=== PATIENT | female | born 1985 | race Caucasian/White ===

== ENCOUNTER 2024-04-04 14:04 | Emergency (ER) | payer OTHER, SELFPAY ==
[2024-04-04 14:15] VITALS: BP 113/71; PULSE 73; TEMP 36.4; O2SAT 95; BMI 28.8
--- OUTSIDE RECORDS SUMMARY | 2024-04-04 14:30 | XMS_ITS | CCD ---
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 Name Role Phone Dante Kat Primary Care Provider [phone] EAN MANZANARES Referring Unavailable DANTE KAT Primary Care Unavailable Delphine Reyna Unavailable Dee Dee Mcneal Unavailable Shelly Griffiths Unavailable DEE DEE MCNEAL Attending Unavailable DEE DEE MCNEAL Primary Care Unavailable DEE DEE MCNEAL Admitting Unavailable FLORENTINO BASURTO Attending Unavailable DEE DEE MCNEAL Primary Care Unavailable TRINIDAD SUÁREZ Attending Unavailable DEE DEE MCNEAL Primary Care Unavailable SOHAIL CAMERON Attending Unavailable Medications Current Medications Medication Drug Class(es) Dates Sig (Normalized) Sig (Original) [id number] actuat albuterol 0.09 mg/actuat metered dose inhaler (3 sources) beta2-Adrenergic Agonist Start: 08-11-2023 Albuterol Sulfate (2.5 MG/3ML) 0.083% 3 ml as needed Inhalation every 8 hrs for 7 days Jul, Active Start: 03-30-2023 take 2 puff(s) by in halation every four hours as needed Albuterol Sulfate HFA 108 (90 Base) MCG/ACT 2 puffs as needed Inhalation every 4 hours for 14 days Jul, Active ALPRAZolam 0.25 mg oral tablet (4 sources) Benzodiazepine Start: 09-25-2022 take 0.5-1 tablets by mouth once daily as needed ALPRAZolam 0.25 MG 0.5 to 1 tablet as needed for panic attack Orally Once Daily for 30 day(s) Sep, Active amoxicillin 875 mg oral tablet (1 source) Penicillin-class Antibacterial Start: 03-15-2022 take 1 tablet by mouth every twelve hours Amoxicillin 875 MG 1 tablet Orally every 12 hrs for 7 days Mar, Active benzonatate 100 mg oral capsule (1 source) Non-narcotic Antitussive Start: 08-11-2023 take 1 capsule by mouth three times daily as needed Tessalon Perles 100 MG 1 capsule as needed Orally Three times a day for 7 days Jul, Active biotin 5 mg oral capsule (1 source) Biotin 5000 MCG CAPS Indications: OTC Take by mouth daily Indications: OTC 0 Active chlordiazePOXIDE hydrochloride 5 mg oral capsule (1 source) Benzodiazepine Start: 06-10-2022 take 1 capsule by mouth every twelve hours chlordiazePOXIDE HCl 5 MG 1 capsule Orally Twice a day for 10 day(s) May, Active hydrOXYzine hydrochloride 10 mg oral tablet (4 sources) Antihistamine Start: 09-25-2022 hydrOXYzine HCl 10 MG 1 tablet as needed Orally at bedtime for 30 day(s) Sep, Active ibuprofen 600 mg oral tablet (1 source) Nonsteroidal Anti-inflammatory Drug Start: 06-03-2016 take 1 tablet by mouth every six hours as needed for pain ibuprofen (ADVIL;MOTRIN) 600 MG tablet Take 1 tablet by mouth every 6 hours as needed for Pain 30 tablet 0 06/03/2016 Active methylPREDNISolone 4 mg oral tablet (3 sources) Corticosteroid Start: 08-11-2023 methylPREDNISolone 4 MG as directed Orally for daily dose take half with breakfast, half with dinner for 6 days Jul, Active Start: 03-30-2023 methylPREDNISo lone 4 MG take half with breakfast, half with dinner Orally as directed for 6 days Mar, Not-Taking Start: 03-15-2022 methylPREDNISo lone 4 MG as directed Orally Once a day for 6 days Mar, Active ondansetron 4 mg oral tablet (1 source) Serotonin-3 Receptor Antagonist Start: 06-03-2016 take 1 tablet by mouth every eight hours as needed for nausea ondansetron (ZOFRAN) 4 MG tablet Take 1 tablet by mouth every 8 hours as needed for Nausea or Vomiting 15 tablet 0 06/03/2016 Active sertraline 100 mg oral tablet (4 sources) Serotonin Reuptake Inhibitor Start: 06-30-2022 take 1 tablet by mouth every twenty-four hours Sertraline HCl 100 MG 1 tablet Orally Once a day for 30 day(s) Jun, Active Spironolactone (5 sources) Aldosterone Antagonist Spironolactone Active 24 hr venlafaxine 37.5 mg extended release oral capsule (1 source) Serotonin and Norepinephrine Reuptake Inhibitor Start: 06-10-2022 take 1 capsule by mouth every twenty-four hours Effexor XR 37.5 MG 1 capsule with food Orally Once a day for 30 day(s) May, Active Completed/Discontinued Medications Medication Drug Class(es) Dates Sig (Normalized) Sig (Original) cyclobenzaprine hydrochloride 10 mg oral tablet (2 sources) Muscle Relaxant Start: 12-01-2021 take 1 tablet by mouth three times daily as needed for pain Cyclobenzaprine HCl 10 MG 1 tab(s) Orally tid prn 1 tablet p.o. 3 times daily as needed for back pain and stiffness Nov, Not-Taking Dexamethasone (1 source) Corticosteroid Start: 08-11-2023 DEXAMETHASONE Jul, 6 mg meloxicam (4 sources) Nonsteroidal Anti-inflammatory Drug Mobic Not-Taking Mobic Active predniSONE 20 mg oral tablet (2 sources) Start: 12-01-2021 take 1 tablet by mouth every twelve hours predniSONE 20 MG 1 tablet Orally bid for 5 day(s) Nov, Not-Taking Toradol 30 mg/ml (7 sources) Start: 12-01-2021 Toradol 30 mg/ ml Nov, 30 mg Problems Active Problems Problem Classification Problem Date Documented Da te Episodic/Chronic Acute bronchitis (1 source) Acute bronchiolitis, unspecified Episodic Anxiety disorders (8 sources) Generalized anxiety disorder; Translations: [Generalized anxiety disorder] Chronic Disorders of teeth and jaw (2 sources) Other specified disorders of teeth and supporting structures; Translations: [Toothache] Onset: 03-04-2024 Episodic Other aftercare (1 source) Encounter for follow-up examination after completed treatment for conditions other than malignant neoplasm Episodic Other lower respiratory disease (6 sources) Cough; Translations: [Cough, unspecified type] Episodic Residual codes; unclassified (4 sources) Insomnia; Translations: [Insomnia, unspecified] Episodic Residual codes; unclassified (2 sources) Insomnia, unspecified Episodic Unclassified (1 source) Ear Pain Onset: 03-04-2024 Unclassified (1 source) ENT Problem Onset: 10-30-2023 Past or Other Problems Problem Classification Problem Date Documented Da te Episodic/Chronic Headache; including migraine (1 source) Headache; Translations: [New onset of headaches] Onset: 06-03-2016 06-03-2016 Episodic Other upper respiratory infections (2 sources) Acute laryngitis; Translations: [Acute pharyngitis, unspecified] Onset: 03-15-2022 Resolved: 03-15-2022 Episodic Otitis media and related conditions (1 source) Otitis media, unspecified, left ear Onset: 03-15-2022 Resolved: 03-15-2022 Episodic Septicemia (except in labor) (1 source) Sepsis; Translations: [Sepsis] Onset: 06-03-2016 06-03-2016 Episodic Sprains and strains (1 source) Strain of muscle, fascia and tendon of lower back, initial encounter Onset: 12-01-2021 Resolved: 12-01-2021 Episodic Unclassified (1 source) Cough, unspecified type R05.9 Onset: 03-15-2022 Resolved: 03-15-2022 Urinary tract infections (1 source) Pyelonephritis; Translations: [Pyelonephritis] Onset: 06-02-2016 06-03-2016 Episodic Results Test Name Value Interpretation Reference Range Facility RACHEL w/Reflex if POSon 2023 Nuclear Ab Ql (S) Negative Invalid Interpretation Code Negative [facility] Comment on above: Result Comment: Perf ormed at: [facility] [address] [id number] PhD Miley Garduno Performed By: #### 1 1377189, 8806332, 48839322, 17145099, 58283672, 3655943, 3343002, 30498276, 59965787, 6462528, 86243123 #### [facility] [address] [place] [address] Estradiolon 11-14-2023 E2 [Mass/Vol] 167.0 pg/mL Invalid Interpretation Code [facility] Comment on above: Result Comment: Adul t Female Range Follicular phase 12.5 - 166.0 Ovulation phase 85.8 - 498.0 Luteal phase 43.8 - 211.0 Postmenopausal <6.0 - 54.7 1st trimester 215.0 - >4300.0 Darleen ECLIA methodology Performed at: [address] [id number] PhD Miley Garduno Performed By: #### 1 6212183, 1960679, 15718823, 49322620, 09869473, 7421064, 3571443, 20264268, 61802026, 7002659, 26089575 #### [facility] [address] [place] [address] FSH and LHon 11-14-2023 Follitropin Qn 9.1 m[IU]/mL Invalid Interpretation Code [facility] Comment on above: Result Comment: Adul t Female Range Follicular phase 3.5 - 12.5 Ovulation phase 4.7 - 21.5 Luteal phase 1.7 - 7.7 Postmenopausal 25.8 - 134.8 Performed at: [facility] [address] [place] [address] [id number] PhD Miley Garduno Performed By: #### 1 2079123, 4609020, 25846057, 29625048, 32841053, 5359673, 5767244, 55835189, 11415188, 9570452, 32640844 #### [facility] [address] [place] [address] Lutropin Qn 15.1 m[IU]/mL Invalid Interpretation Code [facility] Comment on above: Result Comment: Adul t Female Range Follicular phase 2.4 - 12.6 Ovulation phase 14.0 - 95.6 Luteal phase 1.0 - 11.4 Postmenopausal 7.7 - 58.5 Performed By: #### 1 9059160, 1658543, 84260868, 01444008, 08426707, 6568766, 7224187, 97663007, 54525085, 9780524, 14630599 #### [facility] [address] [place] [address] Insulin Lvlon 11-14-2023 Insulin Qn 15.6 u[IU]/mL Invalid Interpretation Code 2.6-24.9 [facility] Comment on above: Result Comment: Perf ormed at: [place] [id number] [place], [place] [id number] PhD Miley Garduno Performed By: #### 1 1797239, 7423411, 03467208, 91194165, 42189207, 5656289, 5425993, 45807482, 35156712, 0661922, 02145887 #### [facility] [address] [place] [address] RF Quanton 11-14-2023 Rheumatoid factor Qn 10.7 International_Uni t/mL Invalid Interpretation Code <14.0 [facility] Comment on above: Result Comment: Perf ormed at: [address] [id number] PhD Miley Garduno Performed By: #### 1 0440602, 0162852, 89193997, 00529390, 20968336, 0489182, 2178845, 58455045, 73712437, 7211374, 38306831 #### [facility] [address] [place] [address] Testosterone F&Ton 4 Testosterone [Mass/Vol] 6 ng/dL Low 8-60 [facility] Comment on above: Performed By: #### 1 6908208, 0795146, 63364016, 07777087, 86235798, 3500451, 6794892, 37079889, 53259464, 7827505, 41408197 #### [facility] [address] [place] [address] Testosterone Free [Mass/Vol] 0.8 pg/mL Invalid Interpretation Code 0.0-4.2 [facility] Comment on above: Result Comment: Perf ormed at: [address] [id number] PhD Miley Garduno Performed at: [address] [id number] MD Torres Gamble Performed By: #### 1 6238794, 9762399, 44724012, 20508783, 40003821, 0871325, 7937852, 65105274, 09910368, 9534639, 87047014 #### [facility] [address] [place] [address] CBC w/ Auto Diffon 4 Basophil Absolute 0.1 E9/L Normal 0.0-0.2 [facility] Comment on above: Performed By: #### 1 0085983, 0499486, 76185730, 55990061, 67980838, 3777156, 4991175, 17068928, 22391253, 5652973, 90563067 #### [facility] [address] [place] [address] Basophils/100 WBC (Bld) 0.8 % Normal 0.0-2.0 [facility] Comment on above: Performed By: #### 1 5879702, 4079025, 72783550, 06650043, 26926974, 4781507, 0276556, 59990833, 30268121, 7037098, 56489378 #### [facility] [address] [place] [address] Eos Absolute 0.1 E9/L Normal 0.0-0.5 [facility] Comment on above: Performed By: #### 1 6670929, 5111208, 25600198, 19516520, 20747137, 4434337, 7552751, 03095465, 52561441, 2387035, 64062725 #### [facility] [address] [place] [address] Eosinophils/100 WBC (Bld) 1.5 % Normal 0.0-8.0 [facility] Comment on above: Performed By: #### 1 3352519, 5002216, 50705537, 99388621, 91097950, 8847110, 9109420, 83952728, 25097330, 7179130, 27048157 #### [facility] [address] [place] [address] Erythrocyte distribution width (RBC) [Ratio] 12.9 % Normal 10.9-14.2 [facility] Comment on above: Performed By: #### 1 1316406, 2653503, 06265886, 90860321, 86283556, 4006430, 1068245, 68452682, 78444742, 8382858, 04989999 #### [facility] [address] [place] 5[address]757 Hematocrit (Bld) [Volume fraction] 45.0 % Normal 34.0-46.0 [facility] Comment on above: Performed By: #### 1 8807255, 5465789, 29497866, 01104282, 47576355, 5909998, 9341253, 21039424, 32495100, 6927486, 65991478 #### [facility] [address] [place] 5[address] Hemoglobin (Bld) [Mass/Vol] 14.6 g/dL Normal 12.0-16.0 [facility] Comment on above: Performed By: #### 1 3885987, 5296309, 66274510, 79178430, 82380913, 5182040, 3328577, 30715246, 38217643, 9353339, 11876655 #### [facility] [address] [place] [address] Lymph Absolute 2.2 E9/L Normal 1.0-4.0 [facility] Comment on above: Performed By: #### 1 3418212, 9839951, 51389586, 37659232, 08572088, 3989419, 6789166, 73282734, 74053693, 7702029, 65966286 #### [facility] [address] [place] [address] Lymphocytes/100 WBC (Bld) 31.3 % Normal 14.0-50.0 [facility] Comment on above: Performed By: #### 1 8294250, 5064451, 89344394, 05493986, 71204000, 2452137, 5319980, 39053734, 12835410, 9369809, 82856411 #### [facility] [address] [place] [address] MCH (RBC) [Entitic mass] 29.2 pg Normal 27.0-34.0 [facility] Comment on above: Performed By: #### 1 8106569, 4965338, 66255598, 53918679, 33905222, 4159709, 6021216, 73732023, 76938258, 5566792, 21274869 #### [facility] [address] [place] [address] MCHC (RBC) [Mass/Vol] 32.5 g/dL Normal 31.4-36.0 [facility] Comment on above: Performed By: #### 1 9930883, 0704295, 43942969, 23623365, 39622390, 5801245, 9008795, 12482197, 67566977, 5192345, 98075698 #### [facility] [address] [place] [address] MCV (RBC) [Entitic vol] 89.8 fL Normal 80.0-100.0 [facility] Comment on above: Performed By: #### 1 7382225, 2878846, 00415111, 17369292, 63763924, 1060668, 2928689, 34996521, 77342159, 6266811, 10577150 #### [facility] [address] [place] [address] [place] Absolute 0.5 E9/L Normal 0.2-1.0 [facility] Comment on above: Performed By: #### 1 3335703, 3549968, 56005368, 20232098, 00003307, 5341075, 1527662, 12885004, 66711360, 2998258, 32312732 #### [facility] [address] [place] [address] Monocytes/100 WBC (Bld) 7.7 % Normal 4.0-14.0 [facility] Comment on above: Performed By: #### 1 0068831, 1630614, 76476432, 74918385, 88490508, 4798075, 8988254, 42154041, 75930892, 9445613, 98843711 #### [facility] [address] [place] [address] Neutro Absolute 4.1 E9/L Normal 2.0-7.5 [facility] Comment on above: Performed By: #### 1 3686152, 2813162, 92651679, 70556319, 05714090, 5478907, 7146113, 19334490, 08629155, 6418740, 96804438 #### [facility] [address] [place] [address] Neutro Auto 58.7 % Normal 36.0-75.0 [facility] Comment on above: Performed By: #### 1 0403964, 3499098, 97063426, 53737124, 05826468, 4185097, 7581438, 03954798, 81954015, 4970904, 44845418 #### [facility] [address] [place] [address] Platelet 425.0 E9/L Normal 150.0-500.0 [facility] Comment on above: Performed By: #### 1 0924806, 1322943, 90244770, 41129536, 26634771, 1935193, 4030791, 84943570, 72882151, 8238538, 46736892 #### [facility] [address] [place] [address] Platelet mean volume (Bld) [Entitic vol] 7.1 fL Normal 6.4-10.8 [facility] Comment on above: Performed By: #### 1 3709880, 8018514, 83698765, 59705496, 94687730, 3524654, 8927251, 64544434, 13116000, 5056360, 87221479 #### [facility] [address] [place] [address] RBC 5.0 E12/L Normal 4.3-5.9 [facility] Comment on above: Performed By: #### 1 1517024, 3305443, 31529982, 52350426, 94859100, 0059555, 2207824, 90323055, 32830379, 8161488, 43396941 #### [facility] [address] [place] [address] WBC 6.9 E9/L Normal 4.0-11.0 [facility] Comment on above: Performed By: #### 1 1876239, 5462694, 20196679, 58110086, 09482868, 0274025, 8821388, 04860842, 61530706, 7982050, 89126894 #### [facility] [address] [place] [address] CMPon 11-09-2023 Albumin [Mass/Vol] 4.6 g/dL Normal 3.3-5.0 [facility] Comment on above: Performed By: #### 1 1439006, 1760545, 15440736, 58351906, 86556253, 3785525, 0295840, 98516070, 28331269, 4732122, 26980109 #### [facility] [address] [place] [address] Albumin/Globulin [Mass ratio] 1.6 {ratio} Normal 1.1-2.2 [facility] Comment on above: Performed By: #### 1 5582613, 5798813, 27442728, 08929521, 65224343, 6228089, 9611615, 10199471, 33481150, 7851882, 03992198 #### [facility] [address] [place] [address] Alk Phos 57 Int._Unit/L Normal 21-98 [facility] Comment on above: Performed By: #### 1 8085211, 4454975, 64392278, 56775653, 76677138, 9657648, 5104002, 43832299, 42759578, 5616195, 28951289 #### [facility] [address] [place] [address] ALT 23 Int._Unit/L Normal 6-46 [facility] Comment on above: Performed By: #### 1 6070905, 1320779, 47381195, 21268869, 87558024, 0710309, 3838239, 41504906, 99617883, 7694120, 51170201 #### [facility] [address] [place] [address] Anion gap [Moles/Vol] 10 mmol/L Normal 6-16 [facility] Comment on above: Performed By: #### 1 6983132, 8785667, 00846146, 44048248, 90533099, 7554104, 4347721, 99316180, 61679252, 6962059, 77784546 #### [facility] [address] [place] 5[address] AST 14 Int._Unit/L Normal 5-43 [facility] Comment on above: Performed By: #### 1 3706911, 8592728, 90155483, 92211277, 66618571, 0558008, 6984109, 87539660, 35402394, 9174154, 08332117 #### [facility] [address] [place] [address] Bili Total 0.5 mg/dL Normal 0.0-1.1 [facility] Comment on above: Performed By: #### 1 6978681, 8371934, 33157056, 01485457, 70819851, 2320380, 9613428, 45243349, 01682253, 7235234, 57977015 #### [facility] [address] [place] [address] BUN/Creat Ratio 19 No Units Normal 10-20 [facility] Comment on above: Performed By: #### 1 3969389, 8064664, 62796311, 57260026, 22411854, 4400011, 7629639, 03581370, 51095808, 1380349, 62320547 #### [facility] [address] [place] [address] Calcium [Mass/Vol] 10.3 mg/dL Normal 8.9-11.1 [facility] Comment on above: Performed By: #### 1 8137490, 5160073, 20744674, 04731255, 43105307, 1724289, 3499260, 96156087, 19010884, 0863994, 28192023 #### [facility] [address] [place] [address] Chloride [Moles/Vol] 99 mmol/L Low 101-111 [facility] Comment on above: Performed By: #### 1 2676126, 8290460, 56313010, 45138373, 23664285, 4808916, 8323373, 12352387, 51104221, 2216299, 98501133 #### [facility] [address] [place] [address] CO2 [Moles/Vol] 31 mmol/L Normal 21-31 [facility] Comment on above: Performed By: #### 1 1257436, 3505039, 49814733, 64029787, 70264044, 7322612, 4962603, 34927564, 38251232, 7878383, 98524536 #### [facility] [address] [place] [address] Creatinine [Mass/Vol] 0.7 mg/dL Normal 0.5-1.3 [facility] Comment on above: Performed By: #### 1 2994932, 9839980, 29036161, 37044438, 89553553, 3322343, 0844412, 02784236, 20251565, 2306209, 58264950 #### [facility] [address] [place] [address] Globulin (S) [Mass/Vol] 2.9 g/dL Normal 1.4-4.0 [facility] Comment on above: Performed By: #### 1 3627293, 5875032, 72333533, 99537694, 04115508, 5628861, 8791355, 75855721, 22189817, 8720224, 83903235 #### [facility] [address] [place] [address] Glucose [Mass/Vol] 87 mg/dL Normal 55-199 [facility] Comment on above: Performed By: #### 1 6194556, 7721242, 93413024, 03114161, 89657521, 1666726, 3573932, 29488174, 72852354, 5634213, 79319006 #### [facility] [address] [place] [address] Potassium [Moles/Vol] 4.3 mmol/L Normal 3.5-5.3 [facility] Comment on above: Performed By: #### 1 0642738, 8145016, 21842293, 23450156, 45608782, 9189577, 5773458, 68806031, 64887792, 9718245, 16674907 #### [facility] [address] [place] [address] Protein [Mass/Vol] 7.5 g/dL Normal 6.0-7.8 [facility] Comment on above: Performed By: #### 1 7755714, 0913116, 05985686, 49838201, 50808955, 6004932, 6022114, 04451788, 87691976, 0631058, 51826495 #### [facility] [address] [place] [address] Sodium [Moles/Vol] 136 mmol/L Normal 135-145 [facility] Comment on above: Performed By: #### 1 7095557, 6871199, 95760897, 54193861, 88883558, 8314826, 6369726, 31954822, 20546080, 5104588, 97028309 #### [facility] [address] [place] [address] Urea nitrogen [Mass/Vol] 13 mg/dL Normal 5-21 [facility] Comment on above: Performed By: #### 1 0700570, 9563935, 76890305, 81482047, 12480493, 0226216, 1383252, 70278760, 96124304, 9166505, 83122188 #### [facility] [address] [place] [address] CRPon 11-09-2023 CRP [Mass/Vol] mg/L Normal <=1.9 [facility] Comment on above: Performed By: #### 1 7064184, 4269583, 28810205, 11292653, 54904975, 7538677, 2077950, 78864367, 40474938, 2121747, 72571599 #### [facility] [address] [place] [address] Physician Orderon 11-09-2023 Physician Order [id number] Normal [facility] T4 & TSHon 11-09-2023 TSH Qn 3.21 m[IU]/L Normal 0.34-5.60 [facility] Comment on above: Performed By: #### 1 2571632, 8982279, 98562990, 86116921, 87462617, 8394371, 8868111, 92708071, 87101569, 3963643, 05896671 #### [facility] [address] [place] [address] T4 7.5 microgram/dL Normal 4.6-9.1 [facility] Comment on above: Performed By: #### 1 6520698, 0208305, 23807326, 48612851, 06720780, 8817381, 7922658, 48507761, 03028513, 6829880, 32102916 #### [facility] [address] [place] [address] eGFRon 11-09-2023 eGFR 114 mL/min/1.73 m2 Normal >=59 [facility] Comment on above: Order Comment: Order added by Discern Expert. Performed By: #### 1 2084983, 1757607, 87908978, 14495074, 98765805, 5747699, 2784344, 15833575, 64551018, 9929252, 02507463 #### [facility] [address] [place] [address] RAPID STREP SCR NURSINGon S. pyogenes Ag EIA Ql (Throat) Negative Normal NEG [facility] Comment on above: Performed By: #### 6 556-5 #### [facility] ([id number]) [address] [place] [address], [place] [address] Quick Strepon 03-15-2022 S. pyogenes Org specific cx Ql (Throat) Negative [facility] [place] Other Quick Strep [facility] [place] Other Measles (Rubeola) Imon 05-04 Measles (Rubeola) Im 3.16 Normal >1.09 [facility] Comment on above: Result Comment: Interpretation: IMMUNE Reference Range: <0.91 Not Immune 0.91-1.09 Equivocal >1.09 Immune Performed By: #### R YANIRA STALEY, APPLE, LOW, VZI #### [facility] [address] [place] [address] Financial Sales Advisor: Sabino Kumari MD Mumps,Immun,Abon 05-04-2020 Mumps,Immun,Ab 2.29 Normal >1.09 [facility] Comment on above: Result Comment: Interpretation: IMMUNE Reference Range: <0.91 Not Immune 0.91-1.09 Equivocal >1.09 Immune Performed By: #### R YANIRA STALEY, APPLE, LOW, VZI #### [facility] [address] [place] [address] Financial Sales Advisor: Sabino Kumari MD VZ Immunityon 05-04-2020 VZ Immunity 2.96 Normal >1.09 [facility] Comment on above: Result Comment: Interpretation: IMMUNE Reference Range: <0.91 Not Immune 0.91-1.09 Equivocal >1.09 Immune Performed By: #### R YANIRA STALEY, APPLE, LOW, VZI #### [employer] [facility] [place] [address] Financial Sales Advisor: Sabino Kumari MD Hep B Surf Abon 05-03-2020 Hep B Surf Ab >1000.00 High <[address] [facility] Comment on above: Result Comment: REFERENCE RANGE: <10.0 NON-REACTIVE/NOT IMMUNE >=10.0 REACTIVE/IMMUNE The presence of Anti-HBs usually indicates recovery from acute or chronic HBV infection or acquired immunity from HBV vaccination. Positive results (quantitative levels of equal to or greater than 10.0 mIU/mL) indicate an adequate immunity from previous infection, vaccination or immune globulin adminstration. Anti-HBc would help define positivity due to Hepatitis B infection. Performed By: #### R YANIRA STALEY, APPLE, LOW, VZI #### [employer] [address] [place] [address] [id number] Financial Sales Advisor: Sabino Kumari MD Rubella Ab, IgGon 05-03-2020 Rubella Ab, IgG 382.8 IU/mL Normal [facility] Comment on above: Result Comment: REFERENCE RANGE: <5.0 NON-REACTIVE (non-immune) 5.0 TO 9.9 EQUIVOCAL >=10.0 REACTIVE (immune) Performed By: #### R YANIRA STALEY, APPLE, LOW, VZI #### [facility] [address] [place] [address] [phone] Financial Sales Advisor: Sabino Kumari MD Hepatitis B Surface Antibody on 05-02-2020 HBV surface Ab (S) [Titer] >1000.00 High <10 mIU/mL [place], [place] Comment on above: REFERENCE RANGE: <10.0 NON-REACTIVE/NOT IMMUNE >=10.0 REACTIVE/IMMUNE The presence of Anti-HBs usually indicates recovery from acute or chronic HBV infection or acquired immunity from HBV vaccination. Positive results (quantitative levels of equal to or greater than 10.0 mIU/mL) indicate an adequate immunity from previous infection, vaccination or immune globulin adminstration. Anti-HBc would help define positivity due to Hepatitis B infection. Interpretation and review of laboratory results Abnormal [place], [place] Rubella antibody, IgGon 08- Rubella virus IgG Ql (S) 382.8 IU/mL [place], [place] Comment on above: REFERENCE RANGE: <5.0 NON-REACTIVE (non-immune) 5.0 TO 9.9 EQUIVOCAL >=10.0 REACTIVE (immune) Vital Signs Date Time Vital Sign Value Performing Clinician Facility 08-11-2023 12:10-0500 Body height 165.1 cm Shelly Griffiths Other [facility] Other 08-11-2023 12:10-0500 Body mass index (BMI) [Ratio] 29.82 kg/m2 Shelly Griffiths Other [facility] Other 08-11-2023 12:10-0500 Body temperature 97.7 [degF] Shelly Griffiths Other [facility] Other 08-11-2023 12:10-0500 Body weight 81.29 kg Shelly Griffiths Other [facility] Other 08-11-2023 12:10-0500 Diastolic blood pressure 78 mm[Hg] Shelly Griffiths Other [facility] Other 08-11-2023 12:10-0500 Respiratory rate 18 /min Shelly Griffiths Other [facility] Other 08-11-2023 12:10-0500 SaO2% (BldA) [Mass fraction] 97 % Shelly Griffiths Other [facility] Other 08-11-2023 12:10-0500 Systolic blood pressure 129 mm[Hg] Shelly Griffiths Other [facility] Other 09-25-2022 11:00-0500 Body height 165.1 cm Dee Dee Mcneal Other [facility] Other 09-25-2022 11:00-0500 Body mass index (BMI) [Ratio] 27.79 kg/m2 Dee Dee Mcneal Other [facility] Other 09-25-2022 11:00-0500 Body temperature 97.5 [degF] Dee Dee Mcneal Other [facility] Other 09-25-2022 11:00-0500 Body weight 75.75 kg Dee Dee Mcneal Other [facility] Other 09-25-2022 11:00-0500 Diastolic blood pressure 63 mm[Hg] Dee Dee Delgadoault Other [facility] Other 09-25-2022 11:00-0500 Respiratory rate 16 /min Dee Dee Mcneal Other [facility] Other 09-25-2022 11:00-0500 SaO2% (BldA) [Mass fraction] 98 % Dee Dee Delgadoault Other [facility] Other 09-25-2022 11:00-0500 Systolic blood pressure 123 mm[Hg] Dee Dee Delgadoault Other [facility] Other 08-28-2022 14:30-0500 Body height 165.1 cm Dee Dee Delgadoault Other [facility] Other 08-28-2022 14:30-0500 Body mass index (BMI) [Ratio] 26.96 kg/m2 Dee Dee Mcneal Other [facility] Other 08-28-2022 14:30-0500 Body temperature 97.2 [degF] Dee Dee Mcneal Other [facility] Other 08-28-2022 14:30-0500 Body weight 73.48 kg Dee Dee Mcneal Other [facility] Other 08-28-2022 14:30-0500 Diastolic blood pressure 63 mm[Hg] Dee Dee Mcneal Other [facility] Other 08-28-2022 14:30-0500 Respiratory rate 16 /min Dee Dee Mcneal Other [facility] Other 08-28-2022 14:30-0500 SaO2% (BldA) [Mass fraction] 100 % Dee Dee Mcneal Other [facility] Other 08-28-2022 14:30-0500 Systolic blood pressure 115 mm[Hg] Dee Dee Mcneal Other [facility] Other 06-10-2022 11:30-0400 Body height 165.1 cm Dee Dee Mcneal Other [facility] Other 06-10-2022 11:30-0400 Body mass index (BMI) [Ratio] 25.79 kg/m2 Dee Dee Mcneal Other [facility] Other 06-10-2022 11:30-0400 Body temperature 97.7 [degF] Dee Dee Delgadoault Other [facility] Other 06-10-2022 11:30-0400 Body weight 70.31 kg Dee Dee Mcneal Other [facility] Other 06-10-2022 11:30-0400 Diastolic blood pressure 70 mm[Hg] Dee Dee Mcneal Other [facility] Other 06-10-2022 11:30-0400 Respiratory rate 18 /min Dee Dee Mcneal Other [facility] Other 06-10-2022 11:30-0400 SaO2% (BldA) [Mass fraction] 99 % Dee Dee Mcneal Other [facility] Other 06-10-2022 11:30-0400 Systolic blood pressure 117 mm[Hg] Dee Dee Mcneal Other [facility] Other 03-15-2022 13:45-0400 Body height 165.1 cm Dee Dee Mcneal Other [facility] Other 03-15-2022 13:45-0400 Body mass index (BMI) [Ratio] 26.62 kg/m2 Dee Dee Mcneal Other [facility] Other 03-15-2022 13:45-0400 Body temperature 100 [degF] Dee Dee Mcneal Other [facility] Other 03-15-2022 13:45-0400 Body weight 72.58 kg Dee Dee Mcneal Other [facility] Other 03-15-2022 13:45-0400 Respiratory rate 20 /min Dee Dee Mcneal Other [facility] Other 03-15-2022 13:45-0400 SaO2% (BldA) [Mass fraction] 98 % Dee Dee Delgadoault Other [facility] Other 12-01-2021 11:00-0400 Body height 165.1 cm Delphine Reyna Other [facility] Other 12-01-2021 11:00-0400 Body mass index (BMI) [Ratio] 26.62 kg/m2 Delphine Maribell Other [facility] Other 12-01-2021 11:00-0400 Body temperature 98.5 [degF] Delphine Lopezmond Other [facility] Other 12-01-2021 11:00-0400 Body weight 72.58 kg Delphine Lopezmond Other [facility] Other 12-01-2021 11:00-0400 Diastolic blood pressure 90 mm[Hg] Delphine Maribell Other [facility] Other 12-01-2021 11:00-0400 Respiratory rate 20 /min Delphine Maribell Other [facility] Other 12-01-2021 11:00-0400 SaO2% (BldA) [Mass fraction] 99 % Delphine Maribell Other [facility] Other 12-01-2021 11:00-0400 Systolic blood pressure 139 mm[Hg] Delphine Maribell Other [facility] Other Encounters Encounter Date Encounter Type Care Provider Facility Start: 03-04-2024 End: 03-04-2024 Emergency department patient visit DEE DEE ELIZABET [facility] Start: 12-23-2023 End: 12-23-2023 ambulatory FLORENTINO BASURTO Not Available Start: 11-09-2023 End: 11-10-2023 ambulatory DEE DEE MC[place]AL [place] [place]: 10-30-2023 End: 10-30-2023 Emergency department patient visit DEE DEE MCNEAL [facility] Start: 08-11-2023 End: 08-11-2023 ambulatory Shelly Griffiths Other [facility] Other Start: 08-11-2023 Office outpatient visit 15 minutes Shelly Griffiths [facility] [place] Start: 09-25-2022 End: 09-25-2022 ambulatory Dee Dee Elizabet Other [facility] Other Start: 09-25-2022 Office outpatient visit 15 minutes Dee Dee Elizabet [facility] Start: 08-28-2022 End: 08-28-2022 ambulatory Dee Dee Elizabet Other [facility] Other Start: 08-28-2022 Office outpatient visit 25 minutes Dee Dee Elizabet [facility] [place] Start: 08-12-2022 End: 08-12-2022 ambulatory Dee Dee Elizabet Other [facility] Other Start: 08-12-2022 Telephone encounter Dee Deecatalina Mock t [facility] [place] Start: 06-10-2022 End: 06-10-2022 ambulatory Dee Dee Elizabet Other [facility] Other Start: 06-10-2022 Office outpatient visit 15 minutes Dee Dee Elizabet [facility] Start: 03-15-2022 End: 03-15-2022 ambulatory Dee Dee Elizabet Other [facility] Other Start: 03-15-2022 Office outpatient visit 25 minutes Dee Dee Elizabet [facility] Start: 12-01-2021 End: 12-01-2021 ambulatory Delphine Reyna Other [facility] Other Start: 12-01-2021 Office outpatient visit 15 minutes Delphine Reyna [facility] Start: 05-02-2020 End: 05-03-2020 Patient encounter procedure [facility] Start: 05-02-2020 End: 05-02-2020 Subsequent hospital visit by physician Dante Kat MTHZ Laboratory Procedures Date Procedure Procedure Detail Performing Clinician Start: 05-02-2020 Antibody mumps EAN [facility] Start: 05-02-2020 Antibody rubeola DINO Y [facility] Start: 05-02-2020 Antibody varicella-zoster [facility] Start: 05-02-2020 Hepatitis b surf ant ibody hbsab [facility] Start: 05-02-2020 Immunoassay infectio us agent antibody morris nos EAN [facility] Start: 05-02-2020 Hepatitis b surf ant ibody hbsab [facility] Work Phone: Start: 05-02-2020 Immunoassay infectio us agent antibody morris nos [facility] Work Phone: Plan of Treatment Date Care Activity Detail Author Start: 02-08-2023 DTaP/Tdap/Td vaccine (2 - Td) DTaP/Tdap/Td vaccine (2 - Td) [place], [place] Start: 05-15-2020 Influenza vaccination Flu vaccine (# 1) [place] Start: 11-14-2007 Screening for malign ant neoplasm of cervix Cervical cancer screen [place], [place] Start: 2001 HIV screening HIV screen [place], [place] Start: 11-14-1987 Varicella vaccine (1 of 2 - 2-dose childhood series) Varicella vaccine (1 of 2 - 2-dose childhood series) [place] End: 05-02-2020 Mumps Antibody, IgG Mumps Antibody, IgG Lab Routine Once for 1 Occurrences starting 05/02/2020 until 05/02/2020 [place] Comment on above: Once for 1 Occurrenc es starting 05/02/2020 until 05/02/2020 Mumps Antibody, IgG Mumps Antibo dy, IgG Lab Routine 05/02/2020 10:40 AM EDT [place] End: 05-02-2020 Rubeola Antibody, IgG Rubeola Antibody, IgG Lab Routine Once for 1 Occurrences starting 05/02/2020 until 05/02/2020 [place] Comment on above: Once for 1 Occurrenc es starting 05/02/2020 until 05/02/2020 Rubeola Antibody, IgG Rubeola An tibody, IgG Lab Routine 05/02/2020 10:40 AM EDT [place] End: 05-02-2020 Varicella Zoster Antibody, IgG Varicella Zoster Antibody, IgG Lab Routine Once for 1 Occurrences starting 05/02/2020 until 05/02/2020 [place] Comment on above: Once for 1 Occurrenc es starting 05/02/2020 until 05/02/2020 Varicella Zoster Antibody, IgG Varicella Zoster Antibody, IgG Lab Routine 05/02/2020 10:40 AM [place], [place] Immunizations Immunization Date Immunization Notes Care Provider Tammi paredes 02-08-2013 tetanus toxoid, redu dora diphtheria toxoid, and acellular pertussis vaccine, adsorbed Dante Kat [place], [place] Payers Date Payer Category Payer Unknown 2021 Unknown [id number]. [id number] 2020 Unknown [id number] 2016 Unknown [id number] 1. [id number] 1986 Unknown [id number] 2.16.8 [id number] 1986 Unknown [id number] 2.16.8 [id number] 1986 Unknown [id number] [id number] 1986 Unknown [id number] 2.16.8 [id number] 1986 Unknown [id number] 2.16.8 [id number] Social History Date Type Detail Facility Start: 06-02-2016 Tobacco smoking status NHIS Never smoker [place] Start: 06-02-2016 Alcohol intake Current drinke r of alcohol (finding) [place] Start: 05-02-2016 Alcohol Comment social Ifrah [place], [place] Sex Assigned At Not on file [place], [place] Sex Assigned At Sex Assigned At Bir th [facility] Other Evaluation note 08-11-2023 Note Date & Type Note Facility 08-11-2023 Evaluation note Encounter Date Diagnosis Assessment Notes Jul, Bronchiolitis (ICD-10 - J21.9) Discussed diagnosis with patient today in office. Dexmethasone injection provided in office. Instructed to take medications as directed as prescribed. Mother states that they have neb machine at home, provided tubing, will send in treatments. Use rx of inhaler every 4 hours, Tessalon Perles as directed for cough. Encouraged supportive care discussed including, increasing fluids and rest, cool mist humidifier. Tylenol as directed for fever/discomfor t. Follow up with PCP on Thursday. Immediate eval by ER for increased work of breathing, difficulty breathing, stridor, lethargy, chest pain, fevers unresponsive to antipyretic, fevers >103, lethargy, stiff neck, poor PO intake and decrease in urine output, or if any other new or concerning symptoms arise. Patient verbalizes understanding and agreeable to treatment plan. [facility] Other Evaluation note 09-25-2022 Note Date & Type Note Facility 09-25-2022 Evaluation note Encounter Date Diagnosis Assessment Notes Sep, Insomnia, unspecified type (ICD-10 - G47.00) Try this medication for the next couple of weeks. If it doesn't work, call office and we can try something else Sep, SANTY (generalized anxiety disorder) (ICD-10 - F41.1) Continue medication regimen OARRS checked. [facility] Other Evaluation note 08-28-2022 Note Date & Type Note Facility 08-28-2022 Evaluation note Encounter Date Diagnosis Assessment Notes Aug, Follow-up exam (ICD-10 - Z09) Discussed all test results in office today and what further steps are needed. Patient states understanding . Aug, SANTY (generalized anxiety disorder) (ICD-10 - F41.1) Increased medication as discussed. OARRS checked . Aug, Insomnia, unspecified type (ICD-10 - G47.00) [facility] Other Evaluation note 06-10-2022 Note Date & Type Note Facility 06-10-2022 Evaluation note Encounter Date Diagnosis Assessment Notes May, SANTY (generalize d anxiety disorder) (ICD-10 - F41.1) Today during the appointment we discussed depression and emotions. We talked about treatment options that include both counseling and medication interventions. When we first start treatment, it is common to have to be seen more frequently as we figure out the best treatment regimen that fits you as an individual. We will be able to space out appointments more once we find what works for you. If at any time you feel like your symptoms have increased in severity or you want to hurt yourself, please never hesitate to contact us and we will get you in to be seen. Also always know the [facility] Number is 24 hours a day available, even on holidays there is someone you can reach out to. Also we will check other labs yearly to screen for other health issues. Please remember we are a team and your opinion is very important in all of your healthcare decisions [facility] Other Evaluation note 03-15-2022 Note Date & Type Note Facility 03-15-2022 Evaluation note Encounter Date Diagnosis Assessment Notes Mar, Cough, unspecified type (ICD-10 - R05.9) Take medications as prescribed. Encourage fluid intake. Cough may linger after viral or bacterial infections; sometimes for weeks. Follow up with primary care provider if no improvement of symptoms within the next few weeks or earlier if symptoms worsen Mar, Laryngitis (ICD-10 - J04.0) Symptoms of laryngitis is caused by viruses. Salt water gargles may help with discomfort. Take medications as directed. Cool mist humidifier, steaming up bathroom with shower may help with symptom relief. Follow up with primary care provider if no improvement of symptoms Mar, Left acute otitis media (ICD-10 - H66.92) Ear infections are often a secondary infection caused from an URI, the flu or allergies. Take medication as directed. Complete all doses, even if you feel better. Tylenol or ibuprofen can help with pain. Warm pack to area for comfort helps as well. Follow up with primary care provider if no improvement of symptoms. [facility] Other Evaluation note 12-01-2021 Note Date & Type Note Facility 12-01-2021 Evaluation note Encounter Date Diagnosis Assessment Notes Nov, Strain of lumbar region, initial encounter (ICD-10 - S39.012A) Drink plenty fluids, get plenty of rest. Take the prednisone as prescribed until gone. You may take Tylenol Motrin as needed for pain as well. Take the Flexeril as prescribed as needed for back pain and stiffness. Be aware this Flexeril make you very tired. Follow-up with your family physician if no improvement in 2 to 3 days. Go to the ER for worsening symptoms or concerns. [facility] Other Evaluation note Note Date & Type Note Facility Evaluation note No Information [facility] Other History general Narrative - Reported Note Date & Type Note Facility History general Narrative - Reported Type Surgical History tubal ligation [facility] Other History general Narrative - Reported Note Date & Type Note Facility History general Narrative - Reported Type Medical History acne Surgical History tubal ligation Hospitalization History see above [facility] Other History general Narrative - Reported Note Date & Type Note Facility History general Narrative - Reported Type Medical History acne Medical History arthritis left shoulder Surgical History tubal ligation Hospitalization History see above [facility] Other Advance Directives No Advanced Directives Records FoundDocuments on File Type Date 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 EPIC DATE CREATED AUTHOR AUTHOR'S ORGANIZ ATION 03/06/2024 [facility] REASON FOR VISIT (unrecogniz ed section and content) LEFT LOWER BACK PAINSORE THR [facility], [place] AnxietyNo InformationF/U, [place] Lab/Test Follow upF/U, [place] AnxietyPOSSIBLE BRONCHITIS, GETTING WORSE, COUGHING, IN CHEST FOR RECORDS PERTAINING TO PATIENTS WHO ARE OR HAVE BEEN ENROLLED IN A CHEMICAL DEPENDENCY/SUBSTANCEABUSE PROGRAM, SOME INFORMATION MAY BE OMITTED. This clinical summary was aggregated from multiple sources. Caution should be exercised in using it in the provision of clinical care. This summary normalizes information from multiple sources, and as a consequence, information in this document may materially change the coding, format and clinical context of patient data. In addition, data may be omitted in some cases. CLINICAL DECISIONS SHOULD BE BASED ON THE PRIMARY CLINICAL RECORDS. [facility]. provides no warranty or guarantee of the accuracy or completeness of information in this document.
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
[2024-04-04] MEDS: ORPHENADRINE 60 MG/ 2 ML VIAL IM (15:06)
[2024-04-04] MEDS: OXYCODONE HCL/ACETAMINOPHEN 5MG/325MG 1 TAB PO (15:07)
== END 2024-04-04 15:33 | disposition home or self-care (01) ==
PROVIDERS: Emergency Provider Emergency Medicine; PCP Nurse Practitioner Family
DX: S60.011A Contusion of right thumb without damage to nail, initial encounter (principal); S09.8XXA Other specified injuries of head, initial encounter; V43.52XA Car driver injured in collision with other type car in traffic accident, initial encounter
CPT/HCPCS: 29130; 70450; 70486; 72125; 73140; 73564; 96372; 99285; J2360

== ENCOUNTER 2024-07-04 09:49 | Outpatient (OUT) | payer OTHER, SELFPAY ==
--- NOTE | 2024-07-04 | XR_ITS ---
[address] [address] Patient Name: NEIL PICKETT MRN: [id number] date: 1985 Sex: F Assigned Patient Location: Current Patient Location: Accession/Order Number: [id number] Exam Date: 07/04/2024 10:15 Report Date: 07/05/2024 06:17 At the request of: TRINIDAD MONROY Procedure: XR tibia fibula RT 2V Frontal and lateral views of the right tibia/fibula INDICATION: Pain COMPARISON: None XR/XR tibia fibula RT 2V IMPRESSION: No acute fracture or dislocation. Partially visualized regional joints are unremarkable. Soft tissues are grossly unremarkable. Electronically authenticated by: MATHEUS RUSSELL Date: 07/05/2024 06:17
--- OUTSIDE RECORDS SUMMARY | 2024-07-04 10:13 | XMS_ITS | CCD ---
Author Organization [facility] Inform ion Partnership [facility] Care Team Providers Care Fourchette Sewer Name Role Phone Dante Kat Primary Care Provider EAN MANZANARES Referring Unavailable DANTE KAT Primary [...] Drug Class(es) Dates Sig (Normalized) Sig (Original) [id number] 200 actuat albuterol 0.09 mg/actuat metered dose [...] Ql (S) Negative Invalid Interpretation Code Negative [facility] Comment on above: Result Comment: Perf ormed at: [facility] [address] [id number] PhD Miley Garduno Performed By: #### 1 1455943, 9161085, 70847900, 53259494, 03635380, 8941121, 3191297, 23827605, 07115386, 4781945, 61713731 #### [facility] [address] [place] [address] Estradiolon 11-14-2023 E2 [Mass/Vol] 167.0 pg/mL Invalid Interpretation Code [facility] Comment on above: Result Comment: Adul t Female Range Follicular phase 12.5 - 166.0 Ovulation phase 85.8 - 498.0 Luteal phase 43.8 - 211.0 Postmenopausal <6.0 - 54.7 1st trimester 215.0 - >4300.0 Darleen ECLIA methodology Performed at: [address] [phone] [id number] PhD Miley Garduno Performed By: #### 1 7706442, 8256013, 86747207, 84422766, 82259143, 3847902, 8435253, 14855340, 70044110, 3258760, 12648673 #### [facility] [address] [place] [address] FSH and LHon 11-14-2023 Follitropin Qn 9.1 m[IU]/mL Invalid Interpretation Code [facility] Comment on above: Result Comment: Adul t Female Range Follicular phase 3.5 - 12.5 Ovulation phase 4.7 - 21.5 Luteal phase 1.7 - 7.7 Postmenopausal 25.8 - 134.8 Performed at: [facility] [address] [place] [address] [id number] PhD Miley Garduno Performed By: #### 1 5774721, 0684179, 84550578, 12973475, 86840357, 4426919, 3983228, 52387156, 92919105, 9165075, 88685256 #### [facility] [address] [place] [address] Lutropin Qn 15.1 m[IU]/mL Invalid Interpretation Code [facility] Comment on above: Result Comment: Adul t Female Range Follicular phase 2.4 - 12.6 Ovulation phase 14.0 - 95.6 Luteal phase 1.0 - 11.4 Postmenopausal 7.7 - 58.5 Performed By: #### 1 0739233, 1539805, 32270181, 15920494, 96952710, 0415053, 7278737, 35050470, 61249566, 2473150, 29887312 #### [facility] [address] [place] [address] Insulin Lvlon 11-14-2023 Insulin Qn 15.6 u[IU]/mL Invalid Interpretation Code 2.6-24.9 [facility] Comment on above: Result Comment: Perf ormed at: [place] [id number] [place], [place] [id number] PhD Miley Garduno Performed By: #### 1 9458870, 5509987, 04429286, 93421925, 35008979, 9505256, 7550261, 24924108, 47465901, 4644732, 59095909 #### [facility] [address] [place] [address] RF Quanton 11-14-2023 Rheumatoid factor Qn 10.7 International_Uni t/mL Invalid Interpretation Code <14.0 [facility] Comment on above: Result Comment: Perf ormed at: [address] [id number] PhD Miley Garduno Performed By: #### 1 0827948, 2412176, 16611414, 44458700, 42869666, 3942885, 6803958, 42021463, 91963751, 5934293, 08185171 #### [facility] [address] [place] [address] Testosterone F&Ton 4 Testosterone [Mass/Vol] 6 ng/dL Low 8-60 [facility] Comment on above: Performed By: #### 1 3188360, 8885896, 95229096, 91524102, 84297789, 7104428, 4241912, 78764755, 08766529, 1715787, 98616501 #### [facility] [address] [place] [address] Testosterone Free [Mass/Vol] 0.8 pg/mL Invalid Interpretation Code 0.0-4.2 [facility] Comment on above: Result Comment: Perf ormed at: [address] [id number] PhD Miley Garduno Performed at: [address] [id number] MD Torres Gamble Performed By: #### 1 0394685, 4059111, 19217198, 41522032, 57475417, 6193234, 5945326, 49795688, 01823316, 1243854, 06694930 #### [facility] [address] [place] [address] CBC w/ Auto Diffon 4 Basophil Absolute 0.1 E9/L Normal 0.0-0.2 [facility] Comment on above: Performed By: #### 1 7046862, 9270966, 17131436, 95315795, 43835624, 7534538, 9223385, 01199314, 50550824, 7764930, 36712136 #### [facility] [address] [place] [address] Basophils/100 WBC (Bld) 0.8 % Normal 0.0-2.0 [facility] Comment on above: Performed By: #### 1 9587399, 3975803, 48385547, 84006058, 88241419, 1506654, 5991479, 69281983, 91603438, 7540488, 11722333 #### [facility] [address] [place] [address] Eos Absolute 0.1 E9/L Normal 0.0-0.5 [facility] Comment on above: Performed By: #### 1 4465163, 7088848, 61571978, 53135690, 83177895, 2981511, 9792834, 97772697, 33199229, 4439871, 29246522 #### [facility] [address] [place] [address] Eosinophils/100 WBC (Bld) 1.5 % Normal 0.0-8.0 [facility] Comment on above: Performed By: #### 1 0376968, 3866278, 32935085, 72288506, 17967013, 2448166, 8430820, 18774639, 81533197, 3447037, 79277170 #### [facility] [address] [place] [address] Erythrocyte distribution width (RBC) [Ratio] 12.9 % Normal 10.9-14.2 [facility] Comment on above: Performed By: #### 1 8558358, 8283944, 56188532, 87857966, 92711456, 6615999, 2120976, 13844257, 78985051, 5466154, 17507094 #### [facility] [address] [id number] Hematocrit (Bld) [Volume fraction] 45.0 % Normal 34.0-46.0 [facility] Comment on above: Performed By: #### 1 3380244, 8263207, 07844699, 00884585, 37207559, 0572229, 3784353, 20075715, 61833482, 6676124, 69271230 #### [facility] [address] 6[address]2757 Hemoglobin (Bld) [Mass/Vol] 14.6 g/dL Normal 12.0-16.0 [facility] Comment on above: Performed By: #### 1 5886930, 3448466, 59256065, 52655435, 23195865, 5072782, 9982949, 00970017, 55802998, 7995125, 78322556 #### [facility] [address] [place] [address] Lymph Absolute 2.2 E9/L Normal 1.0-4.0 [facility] Comment on above: Performed By: #### 1 5193173, 1739306, 69380039, 17057667, 27595431, 3221204, 1028654, 24306623, 48127573, 5642699, 67053178 #### [facility] [address] [place] [address] Lymphocytes/100 WBC (Bld) 31.3 % Normal 14.0-50.0 [facility] Comment on above: Performed By: #### 1 9528882, 4802967, 56036535, 59335614, 78780988, 4735139, 2379730, 62800643, 77614001, 5507064, 19807767 #### [facility] [address] [place] [address] MCH (RBC) [Entitic mass] 29.2 pg Normal 27.0-34.0 [facility] Comment on above: Performed By: #### 1 6304890, 1454539, 69865846, 32452930, 82418018, 3110758, 7998545, 31929068, 64852637, 5084403, 99469069 #### [facility] [address] [place] [address] MCHC (RBC) [Mass/Vol] 32.5 g/dL Normal 31.4-36.0 [facility] Comment on above: Performed By: #### 1 9451498, 0155745, 05094745, 19813003, 69984877, 3345233, 1293570, 47981276, 05461162, 9735164, 75736395 #### [facility] [address] [place] [address] MCV (RBC) [Entitic vol] 89.8 fL Normal 80.0-100.0 [facility] Comment on above: Performed By: #### 1 7963227, 1432112, 69364262, 22172126, 59297427, 4791012, 2761005, 88720585, 90325593, 3198650, 59812945 #### [facility] [address] [place] [address] Culberson Absolute 0.5 E9/L Normal 0.2-1.0 [facility] Comment on above: Performed By: #### 1 7467043, 3527137, 92609736, 66400059, 34476470, 1029235, 5504709, 54678910, 73625951, 1181664, 81447831 #### [facility] [address] [place] [address] Monocytes/100 WBC (Bld) 7.7 % Normal 4.0-14.0 [facility] Comment on above: Performed By: #### 1 3539313, 9118965, 18587526, 37205842, 20173414, 0509233, 8561236, 68211938, 14956426, 2041467, 32147186 #### [facility] [address] [place] [address] Neutro Absolute 4.1 E9/L Normal 2.0-7.5 [facility] Comment on above: Performed By: #### 1 5735403, 6839463, 38462078, 46212954, 15175643, 4234229, 7392996, 69032867, 86580269, 1888233, 99957257 #### [facility] [address] [place] [address] Neutro Auto 58.7 % Normal 36.0-75.0 [facility] Comment on above: Performed By: #### 1 3345794, 8639094, 83664912, 17980508, 89947734, 1736897, 9273257, 23894719, 06711738, 1364332, 57150614 #### [facility] [address] [place] [address] Platelet 425.0 E9/L Normal 150.0-500.0 [facility] Comment on above: Performed By: #### 1 0164910, 7063097, 07053374, 49014293, 63049723, 7410247, 9101061, 24325621, 24896447, 8375902, 44808164 #### [facility] [address] [place] [address] Platelet mean volume (Bld) [Entitic vol] 7.1 fL Normal 6.4-10.8 [facility] Comment on above: Performed By: #### 1 3241725, 6087498, 77629752, 95547155, 21062285, 0887586, 2151808, 21108446, 61505537, 0165010, 72057303 #### [facility] [address] [place] [address] RBC 5.0 E12/L Normal 4.3-5.9 [facility] Comment on above: Performed By: #### 1 5724366, 0043515, 23255857, 26153677, 25081582, 8321019, 4955529, 77373033, 16762983, 4482494, 95488791 #### [facility] [address] [place] [address] WBC 6.9 E9/L Normal 4.0-11.0 [facility] Comment on above: Performed By: #### 1 2891115, 4508720, 91981829, 68138136, 93443893, 1401463, 2141557, 91250072, 43992897, 0707699, 30955819 #### [facility] [address] [place] [address] CMPon 11-09-2023 Albumin [Mass/Vol] 4.6 g/dL Normal 3.3-5.0 [facility] Comment on above: Performed By: #### 1 5046247, 1948094, 71209934, 08873890, 90186036, 6910115, 9319268, 07843889, 58726932, 6619436, 61049486 #### [facility] [address] [place] [address] Albumin/Globulin [Mass ratio] 1.6 {ratio} Normal 1.1-2.2 [facility] Comment on above: Performed By: #### 1 9162468, 0425055, 17772604, 27367922, 97802646, 1606099, 7995858, 86025226, 65844901, 2311947, 65070010 #### [facility] [address] [place] [address] Alk Phos 57 Int._Unit/L Normal 21-98 [facility] Comment on above: Performed By: #### 1 8061958, 6130181, 42075222, 15835333, 29153543, 5479943, 2734728, 69975819, 79909852, 7456103, 41378534 #### [facility] [address] [place] [address] ALT 23 Int._Unit/L Normal 6-46 [facility] Comment on above: Performed By: #### 1 4318541, 0475878, 11408263, 93302552, 65721512, 6857989, 4654234, 80629600, 40901636, 6558564, 33094573 #### [facility] [address] [place] [address] Anion gap [Moles/Vol] 10 mmol/L Normal 6-16 [facility] Comment on above: Performed By: #### 1 2790739, 3039784, 22601053, 25395723, 62662186, 4030478, 1590166, 62786878, 09038034, 4450285, 06710029 #### [facility] [address] [place] 6[address]2757 AST 14 Int._Unit/L Normal 5-43 [facility] Comment on above: Performed By: #### 1 2339496, 8169566, 75515829, 87074618, 69847017, 8698750, 9452034, 10331723, 69414269, 5085889, 12486573 #### [facility] [address] [place] [address] Bili Total 0.5 mg/dL Normal 0.0-1.1 [facility] Comment on above: Performed By: #### 1 8874696, 1566880, 05794052, 80744778, 07701723, 3006735, 4109748, 31081607, 50272069, 6425336, 60027563 #### [facility] [address] [place] [address] BUN/Creat Ratio 19 No Units Normal 10-20 [facility] Comment on above: Performed By: #### 1 4243081, 8140811, 20270357, 76132283, 57077051, 0844299, 1983297, 68623138, 85773814, 0517554, 39292239 #### [facility] [address] [place] [address] Calcium [Mass/Vol] 10.3 mg/dL Normal 8.9-11.1 [facility] Comment on above: Performed By: #### 1 9769409, 8600665, 58672741, 55078496, 45216475, 2898650, 6534802, 62526048, 14961336, 6199863, 91311125 #### [facility] [address] [place] [address] Chloride [Moles/Vol] 99 mmol/L Low 101-111 [facility] Comment on above: Performed By: #### 1 0002811, 9852711, 82220590, 71633344, 28192692, 8544274, 2183827, 57279364, 46351800, 6870097, 34656480 #### [facility] [address] [place] [address] CO2 [Moles/Vol] 31 mmol/L Normal 21-31 [facility] Comment on above: Performed By: #### 1 4139755, 6277145, 90828295, 42911621, 35252833, 0023173, 0990809, 47756803, 36712005, 3698867, 63000192 #### [facility] [address] [place] [address] Creatinine [Mass/Vol] 0.7 mg/dL Normal 0.5-1.3 [facility] Comment on above: Performed By: #### 1 9970427, 7062530, 33680085, 76391728, 65575837, 1438860, 5157490, 93019350, 14129299, 0668375, 75791991 #### [facility] [address] [place] [address] Globulin (S) [Mass/Vol] 2.9 g/dL Normal 1.4-4.0 [facility] Comment on above: Performed By: #### 1 3751789, 1133616, 69044613, 36201204, 41572729, 6352423, 1471571, 60515994, 59856086, 5725731, 52713856 #### [facility] [address] [place] [address] Glucose [Mass/Vol] 87 mg/dL Normal 55-199 [facility] Comment on above: Performed By: #### 1 8745273, 5359994, 60887615, 94890421, 48564690, 8484800, 7317679, 79328220, 35638340, 1484179, 76057058 #### [facility] [address] [place] [address] Potassium [Moles/Vol] 4.3 mmol/L Normal 3.5-5.3 [facility] Comment on above: Performed By: #### 1 4050017, 4492860, 33506088, 43037460, 82646769, 0777688, 1799571, 03745673, 11132436, 6536020, 10532076 #### [facility] [address] [place] [address] Protein [Mass/Vol] 7.5 g/dL Normal 6.0-7.8 [facility] Comment on above: Performed By: #### 1 6416167, 9851723, 82901181, 56950723, 83014120, 0250950, 9097489, 80402588, 16381696, 9269106, 80588406 #### [facility] [address] [place] [address] Sodium [Moles/Vol] 136 mmol/L Normal 135-145 [facility] Comment on above: Performed By: #### 1 2081089, 2099800, 69283009, 42039444, 00379400, 2852540, 6461076, 55083316, 02584349, 4684641, 58938378 #### [facility] [address] [place] [address] Urea nitrogen [Mass/Vol] 13 mg/dL Normal 5-21 [facility] Comment on above: Performed By: #### 1 7363182, 9460939, 51289658, 79470874, 13846538, 4830403, 8951047, 71064397, 72466856, 0168993, 37946589 #### [facility] [address] [place] [address] CRPon 11-09-2023 CRP [Mass/Vol] mg/L Normal <=1.9 [facility] Comment on above: Performed By: #### 1 7823152, 0819613, 61067867, 66601268, 84855031, 4302406, 6242254, 58005734, 76786768, 0680911, 82073629 #### [facility] [address] [place] [address] Physician Orderon 11-09-2023 Physician Order [id number] Normal [facility] T4 & TSHon 11-09-2023 TSH Qn 3.21 m[IU]/L Normal 0.34-5.60 [facility] Comment on above: Performed By: #### 1 7981103, 3523851, 31285567, 82265397, 20482429, 2757156, 2770566, 25367837, 99779254, 2562633, 16123753 #### [facility] [address] [place] [address] T4 7.5 microgram/dL Normal 4.6-9.1 [facility] Comment on above: Performed By: #### 1 1440272, 8305418, 88324373, 82296348, 36773028, 7632478, 6204318, 20825596, 39256864, 8716078, 70899438 #### [facility] [address] [place] [address] eGFRon 11-09-2023 eGFR 114 mL/min/1.73 m2 Normal >=59 [facility] Comment on above: Order Comment: Order added by Discern Expert. Performed By: #### 1 6787243, 9540342, 52910161, 30637908, 03678620, 9177026, 9845775, 46061228, 36317442, 5494014, 00858979 #### [facility] [address] [place] [address] RAPID STREP SCR NURSINGon S. pyogenes Ag EIA Ql (Throat) Negative Normal NEG [facility] Comment on above: Performed By: #### 6 556-5 #### [facility] ([id number]) [address] [place] [address], [place] [address] Quick Strepon 03-15-2022 S. pyogenes Org specific cx Ql (Throat) Negative [facility] Other Quick Strep [facility] Other Measles (Rubeola) Imon 05-04 Measles (Rubeola) Im 3.16 Normal >1.09 [facility] Comment on above: Result Comment: Interpretation: IMMUNE Reference Range: <0.91 Not Immune 0.91-1.09 Equivocal >1.09 Immune Performed By: #### R YANIRA STALEY, APPLE, LOW, VZI #### [facility] [address] [place] [address] [employer]: Sabino Kumari MD Mumps,Immun,Abon 05-04-2020 Mumps,Immun,Ab 2.29 Normal >1.09 [facility] Comment on above: Result Comment: Interpretation: IMMUNE Reference Range: <0.91 Not Immune 0.91-1.09 Equivocal >1.09 Immune Performed By: #### R YANIRA STALEY, APPLE, LOW, VZI #### [facility] [address] [place] [address] Inspector [employer]: Sabino Kumari MD VZ Immunityon 05-04-2020 VZ Immunity 2.96 Normal >1.09 [facility] Comment on above: Result Comment: Interpretation: IMMUNE Reference Range: <0.91 Not Immune 0.91-1.09 Equivocal >1.09 Immune Performed By: #### R YANIRA STALEY, APPLE, LOW, VZI #### [facility] [place] [address] Inspector [employer]: Sabino Kumari MD Hep B Surf Abon 05-03-2020 Hep B Surf Ab >1000.00 High <10 [facility] Comment on above: Result Comment: REFERENCE [...] R YANIRA STALEY, APPLE, LOW, VZI #### [facility] [address] [place] [address] [phone] [employer]: Sabino Kumari MD Rubella Ab, IgGon 05-03-2020 Rubella Ab, IgG 382.8 IU/mL Normal [facility] Comment on above: Result Comment: REFERENCE RANGE: <5.0 NON-REACTIVE (non-immune) 5.0 TO 9.9 EQUIVOCAL >=10.0 REACTIVE (immune) Performed By: #### R YANIRA STALEY, APPLE, LOW, VZI #### [facility] [address] [place] [address] [id number] [employer]: Sabino Kumari MD Hepatitis B Surface Antibody on 05-02-2020 HBV surface Ab (S) [Titer] >1000.00 High <10 mIU/mL [place] Comment on above: REFERENCE RANGE: <10.0 [...] Interpretation and review of laboratory results Abnormal [place], [place] Rubella antibody, IgGon 08- Rubella virus IgG Ql (S) 382.8 IU/mL [place] Comment on above: REFERENCE RANGE: <5.0 NON-REACTIVE (non-immune) 5.0 TO 9.9 EQUIVOCAL >=10.0 REACTIVE (immune) Vital Signs Date Time Vital Sign Value Performing Clinician Facility 08-11-2023 12:10-0500 Body height 165.1 cm Shelly Griffiths Other [facility] Other 08-11-2023 12:10-0500 Body mass index (BMI) [Ratio] 29.82 kg/m2 Shelly Griffiths Other [facility] Other 08-11-2023 12:10-0500 Body temperature 97.7 [degF] Shelly Griffiths Other [facility] Other 08-11-2023 12:10-0500 Body weight 81.29 kg Shelly Griffiths Other [facility] Other 08-11-2023 12:10-0500 Diastolic blood pressure 78 mm[Hg] Shelly Griffiths Other [facility] Other 08-11-2023 12:10-0500 Respiratory rate 18 /min Shelly Griffiths Other [facility] Other 08-11-2023 12:10-0500 SaO2% (BldA) [Mass fraction] 97 % Shelly Griffiths Other [facility] Other 08-11-2023 12:10-0500 Systolic blood pressure 129 mm[Hg] Shelly Griffiths Other [facility] Other 09-25-2022 11:00-0500 Body height 165.1 cm Dee Dee Mcneal Other [facility] Other 09-25-2022 11:00-0500 Body mass index (BMI) [Ratio] 27.79 kg/m2 Dee Dee Mcneal Other [facility] Other 09-25-2022 11:00-0500 Body temperature 97.5 [degF] Dee Dee Mcneal Other [facility] Other 09-25-2022 11:00-0500 Body weight 75.75 kg Dee Dee Mcneal Other [facility] Other 09-25-2022 11:00-0500 Diastolic blood pressure 63 mm[Hg] Dee Dee Delgadoault Other [facility] Other 09-25-2022 11:00-0500 Respiratory rate 16 /min Dee Dee Mcneal Other [facility] Other 09-25-2022 11:00-0500 SaO2% (BldA) [Mass fraction] 98 % Dee Dee Delgadoault Other [facility] Other 09-25-2022 11:00-0500 Systolic blood pressure 123 mm[Hg] Dee Dee Delgadoault Other [facility] Other 08-28-2022 14:30-0500 Body height 165.1 cm Dee Dee Delgadoault Other [facility] Other 08-28-2022 14:30-0500 Body mass index (BMI) [Ratio] 26.96 kg/m2 Dee Dee Mcneal Other [facility] Other 08-28-2022 14:30-0500 Body temperature 97.2 [degF] Dee Dee Mcneal Other [facility] Other 08-28-2022 14:30-0500 Body weight 73.48 kg Dee Dee Mcneal Other [facility] Other 08-28-2022 14:30-0500 Diastolic blood pressure 63 mm[Hg] Dee Dee Mcneal Other [facility] Other 08-28-2022 14:30-0500 Respiratory rate 16 /min Dee Dee Mcneal Other [facility] Other 08-28-2022 14:30-0500 SaO2% (BldA) [Mass fraction] 100 % Dee Dee Mcneal Other [facility] Other 08-28-2022 14:30-0500 Systolic blood pressure 115 mm[Hg] Dee Dee Mcneal Other [facility] Other 06-10-2022 11:30-0400 Body height 165.1 cm Dee Dee Mcneal Other [facility] Other 06-10-2022 11:30-0400 Body mass index (BMI) [Ratio] 25.79 kg/m2 Dee Dee Mcneal Other [facility] Other 06-10-2022 11:30-0400 Body temperature 97.7 [degF] Dee Dee Delgadoault Other [facility] Other 06-10-2022 11:30-0400 Body weight 70.31 kg Dee Dee Mcneal Other [facility] Other 06-10-2022 11:30-0400 Diastolic blood pressure 70 mm[Hg] Dee Dee Mcneal Other [facility] Other 06-10-2022 11:30-0400 Respiratory rate 18 /min Dee Dee Mcneal Other [facility] Other 06-10-2022 11:30-0400 SaO2% (BldA) [Mass fraction] 99 % Dee Dee Mcneal Other [facility] Other 06-10-2022 11:30-0400 Systolic blood pressure 117 mm[Hg] Dee Dee Mcneal Other [facility] Other 03-15-2022 13:45-0400 Body height 165.1 cm Dee Dee Mcneal Other [facility] Other 03-15-2022 13:45-0400 Body mass index (BMI) [Ratio] 26.62 kg/m2 Dee Dee Mcneal Other [facility] Other 03-15-2022 13:45-0400 Body temperature 100 [degF] Dee Dee Mcneal Other [facility] Other 03-15-2022 13:45-0400 Body weight 72.58 kg Dee Dee Mcneal Other [facility] Other 03-15-2022 13:45-0400 Respiratory rate 20 /min Dee Dee Mcneal Other [facility] Other 03-15-2022 13:45-0400 SaO2% (BldA) [Mass fraction] 98 % Dee Dee Delgadoault Other [facility] Other 12-01-2021 11:00-0400 Body height 165.1 cm Delphine Reyna Other [facility] Other 12-01-2021 11:00-0400 Body mass index (BMI) [Ratio] 26.62 kg/m2 Delphine Maribell Other [facility] Other 12-01-2021 11:00-0400 Body temperature 98.5 [degF] Delphine Lopezmond Other [facility] Other 12-01-2021 11:00-0400 Body weight 72.58 kg Delphine Lopezmond Other [facility] Other 12-01-2021 11:00-0400 Diastolic blood pressure 90 mm[Hg] Delphine Maribell Other [facility] Other 12-01-2021 11:00-0400 Respiratory rate 20 /min Delphine Maribell Other [facility] Other 12-01-2021 11:00-0400 SaO2% (BldA) [Mass fraction] 99 % Delphine Maribell Other [facility] Other 12-01-2021 11:00-0400 Systolic blood pressure 139 mm[Hg] Delphine Maribell Other [facility] Other Encounters Encounter Date Encounter Type Care Provider Facility Start: 03-04-2024 End: 03-04-2024 Emergency department patient visit DEE DEE ELIZABET [facility] Start: 12-23-2023 End: 12-23-2023 ambulatory FLORENTINO BASURTO Not Available Start: 11-09-2023 End: 11-10-2023 ambulatory DEE DEE MCNEAL [place] [place]: 10-30-2023 End: 10-30-2023 Emergency department patient visit DEE DEE MCNEAL [facility] Start: 08-11-2023 End: 08-11-2023 ambulatory Shelly Griffiths Other [facility] Other Start: 08-11-2023 Office outpatient visit 15 minutes Shelly Griffiths [facility] Start: 09-25-2022 End: 09-25-2022 ambulatory Dee Dee Elizabet Other [facility] Other Start: 09-25-2022 Office outpatient visit 15 minutes Dee Dee [facility] Start: 08-28-2022 End: 08-28-2022 ambulatory Dee Dee Elizabet Other [facility] Other Start: 08-28-2022 Office outpatient visit 25 minutes Dee Dee [facility] Start: 08-12-2022 End: 08-12-2022 ambulatory Dee Dee Elizabet Other [facility] Other Start: 08-12-2022 Telephone encounter Dee Deecatalina Mock t [facility] Start: 06-10-2022 End: 06-10-2022 ambulatory Dee Dee Eliz[facility]et Other [facility] Other Start: 06-10-2022 Office outpatient visit 15 minutes Dee Dee Eliz[facility]et [facility] Start: 03-15-2022 End: 03-15-2022 ambulatory Dee Dee Elizabet Other [facility] Other Start: 03-15-2022 Office outpatient visit 25 minutes Dee Dee Elizabet [facility] Start: 12-01-2021 End: 12-01-2021 ambulatory Delphine Reyna Other [facility] Other Start: 12-01-2021 Office outpatient visit 15 minutes Delphine Reyna [facility] Start: 05-02-2020 End: 05-03-2020 Patient encounter procedure [facility] Start: 05-02-2020 End: 05-02-2020 Subsequent hospital visit by physician Dante Kat [facility] Laboratory Procedures Date Procedure Procedure Detail Performing Clinician Start: 05-02-2020 Antibody mumps [facility] Start: 05-02-2020 Antibody rubeola DINO Y [facility] Start: 05-02-2020 Antibody varicella-zoster [facility] Start: 05-02-2020 Hepatitis b surf ant ibody hbsab [facility] Start: 05-02-2020 Immunoassay infectio us agent antibody morris nos EAN [facility] Start: 05-02-2020 Hepatitis b surf ant ibody hbsab [facility] Work Phone: Start: 05-02-2020 Immunoassay infectio us agent antibody morris nos [facility] Work Phone: Plan of Treatment Date Care Activity Detail Author Start: 02-08-2023 DTaP/Tdap/Td vaccine (2 - Td) DTaP/Tdap/Td vaccine (2 - Td) [place] Start: 05-15-2020 Influenza vaccination Flu vaccine (# 1) [place] Start: 11-14-2007 Screening for malign ant neoplasm of cervix Cervical cancer screen [place], [place] Start: 2001 HIV screening HIV screen [place], [place] Start: 11-14-1987 Varicella vaccine (1 of 2 - 2-dose childhood series) Varicella vaccine (1 of 2 - 2-dose childhood series) [place] End: 05-02-2020 Mumps Antibody, IgG Mumps Antibody, IgG Lab Routine Once for 1 Occurrences starting 05/02/2020 until 05/02/2020 [place] Comment on above: Once for 1 Occurrenc es starting 05/02/2020 until 05/02/2020 Mumps Antibody, IgG Mumps Antibo dy, IgG Lab Routine 05/02/2020 10:40 AM EDT [place] End: 05-02-2020 Rubeola Antibody, IgG Rubeola Antibody, IgG Lab Routine Once for 1 Occurrences starting 05/02/2020 until 05/02/2020 [place] Comment on above: Once for 1 Occurrenc es starting 05/02/2020 until 05/02/2020 [place] Antibody, IgG Rubeola An tibody, IgG Lab Routine 05/02/2020 10:40 AM EDT [place] End: 05-02-2020 Varicella Zoster Antibody, IgG Varicella Zoster Antibody, IgG Lab Routine Once for 1 Occurrences starting 05/02/2020 until 05/02/2020 [place] Comment on above: Once for 1 Occurrenc es starting 05/02/2020 until 05/02/2020 Varicella Zoster Antibody, IgG Varicella Zoster Antibody, IgG Lab Routine 05/02/2020 10:40 AM [place], [place] Immunizations Immunization Date Immunization Notes Care Provider Tammi paredes 02-08-2013 tetanus toxoid, redu dora diphtheria toxoid, and acellular pertussis vaccine, adsorbed Dante Kat [place], [place] Payers Date Payer Category Payer Unknown 2021 Unknown [id number] 2020 Unknown [id number] 1.2.8 [id number] 2016 Unknown [id number]. [id number] 1986 Unknown [id number] 2.16.8 [id number] 1986 Unknown [id number] 2.16.8 [id number] 1986 Unknown [id number] 2.16.84 [id number] 1986 Unknown [id number] 2.16.8 [id number] 1986 Unknown [id number] 2.16.8 [id number] Social History Date Type Detail Facility Start: 06-02-2016 Tobacco smoking status NHIS Never smoker [place] Start: 06-02-2016 Alcohol intake Current drinke r of alcohol (finding) [place] Start: 05-02-2016 Alcohol Comment social Ifrah Pedro [place], [place] Sex Assigned At Not on file [place] Sex Assigned At Sex Assigned At Bir th [facility] Other Evaluation note 08-11-2023 Note Date & [...] verbalizes understanding and agreeable to treatment plan. [facility] Other Evaluation note 09-25-2022 Note Date & Type Note Facility 09-25-2022 Evaluation note Encounter Date Diagnosis Assessment Notes Sep, Insomnia, unspecified type (ICD-10 - G47.00) Try this medication for the next couple of weeks. If it doesn't work, call office and we can try something else Sep, SANTY (generalized anxiety disorder) (ICD-10 - F41.1) Continue medication regimen OARRS checked. [facility] Other Evaluation note 08-28-2022 Note Date & Type Note Facility 08-28-2022 Evaluation note Encounter Date Diagnosis Assessment Notes Aug, Follow-up exam (ICD-10 - Z09) Discussed all test results in office today and what further steps are needed. Patient states understanding . Aug, SANTY (generalized anxiety disorder) (ICD-10 - F41.1) Increased medication as discussed. OARRS checked . Aug, Insomnia, unspecified type (ICD-10 - G47.00) [facility] Other Evaluation note 06-10-2022 Note Date & [...] to be seen. Also always know the [facility] Emergency Number is 24 hours a day available, even on holidays there is someone you can reach out to. Also we will check other labs yearly to screen for other health issues. Please remember we are a team and your opinion is very important in all of your healthcare decisions [facility] Other Evaluation note 03-15-2022 Note Date & [...] care provider if no improvement of symptoms. [facility] Other Evaluation note 12-01-2021 Note Date & [...] the ER for worsening symptoms or concerns. [facility] Other Evaluation note Note Date & Type Note Facility Evaluation note No Information [facility] Other History general Narrative - Reported Note Date & Type Note Facility History general Narrative - Reported Type Surgical History tubal ligation [facility] Other History general Narrative - Reported Note Date & Type Note Facility History general Narrative - Reported Type Medical History acne Surgical History tubal ligation Hospitalization History see above [facility] Other History general Narrative - Reported Note Date & Type Note Facility History general Narrative - Reported Type Medical History acne Medical History arthritis left shoulder Surgical History tubal ligation Hospitalization History see above [facility] Other Advance Directives No Advanced Directives Records FoundDocuments on File Type Date Recorded Patient Technology Methodology Consultant Expl anation ACP-Advance Directive ACP-Power of Movie Critic Latest Code Status on File Code Status [...] DATE CREATED AUTHOR AUTHOR'S ORGANIZ ATION 11/15/2023 [place] [facility] DATE CREATED AUTHOR AUTHOR'S ORGANIZ ATION 12/24/2023 [facility] EPIC DATE CREATED AUTHOR AUTHOR'S ORGANIZ ATION 03/06/2024 [facility] REASON FOR VISIT (unrecogniz ed section [...] BE BASED ON THE PRIMARY CLINICAL RECORDS. [facility] provides no warranty or guarantee of the accuracy or completeness of information in this document.
== END 2024-07-04 09:50 | disposition home or self-care (01) ==
LOC: EC 09:51
PROVIDERS: PCP Nurse Practitioner Family; Visit Provider Orthopaedic Surgery
DX: M79.661 Pain in right lower leg (principal)
CPT/HCPCS: 73590